=== PATIENT | male | born 1975 | race Two or more races ===

== ENCOUNTER 2020-12-17 08:49 | Emergency (ER) | payer SELFPAY ==
[~2020-12-17] VITALS: Ht 162.6 cm; Wt 93.9 kg
[2020-12-17] MEDS ORDERED: IBUPROFEN 600 MG TABLET PO ONE (09:00)
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
[2020-12-17] MEDS ORDERED: IBUPROFEN 600 MG TABLET ONE (09:01)
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
--- NOTE | 2020-12-17 09:15 | NUR ---
OFFICER MINO HENRY
[2020-12-17] MEDS ORDERED: IBUP-1955 PO (09:32)
[2020-12-17 09:36] VITALS: BP 158/98
== END 2020-12-17 09:37 | disposition home or self-care (01) ==
LOC: ER 08:51
DX: R07.89 Other chest pain (principal); F41.9 Anxiety disorder, unspecified; R00.0 Tachycardia, unspecified; I10 Essential (primary) hypertension; Y08.89XA Assault by other specified means, initial encounter; Y93.89 Activity, other specified; Y92.89 Other specified places as the place of occurrence of the external cause; Y99.8 Other external cause status
CPT/HCPCS: 71045-TC